=== PATIENT | male | born 1955 | race Asian ===

== ENCOUNTER 2017-07-12 11:25 | Emergency (ER) | payer BC ==
[~2017-07-12] VITALS: Ht 162.6 cm; Wt 59.9 kg
[2017-07-12] MEDS ORDERED: niCARdipine HCl 200 ML IV SCH (12:15)
--- NOTE | 2017-07-12 12:18 | Diagnostic Imaging Report ---
Indications: Right-sided weakness Technique: Spiral acquisitions obtained through the brain. Angled axial and coronal 5 x 5 mm slices were reconstructed. Total dose length product 1376 mGycm. CTDI vol(s) 70 mGy. Dose reduction achieved using automated exposure control Comparison: None Findings: There is a small focus of parenchymal hemorrhage in the left parietal subcortical deep white matter, just above the basal ganglia. This measures 15 mm AP by 10 mm transverse by approximately 12 mm craniocaudad. There is minimal surrounding edema. This does not result in any significant mass effect. No other evidence of acute hemorrhage. There is mild prominence to the ventricles and extra axial CSF spaces, the latter particularly in the bifrontal regions. There is mild periventricular deep night matter chronic ischemic change. No evidence of significant scalp soft tissue abnormality. The visualized orbits and sinuses are unremarkable. The calvarium is intact. The mastoids are clear Impression: Positive for 15 x 10 x 12 mm left parietal/high basal ganglia intraparenchymal hemorrhage. Minimal surrounding edema. No significant mass effect Chronic and age-related changes, as described Critical value findings discussed by phone with Dr. Lioa in the emergency room at the time of interpretation The CT scanner at [facility] is accredited by the [employer] and the scans are performed using protocols designed to limit radiation exposure to as low as reasonably achievable to attain images of sufficient resolution adequate for diagnostic evaluation.
--- NOTE | 2017-07-12 12:31 | Emergency Room Report ---
History of Present Illness General Chief Complaint: Generalized Weakness Source: Patient Present Illness HPI [id number] walk-in with waking up at 6am (6 hours prior) with right arm and leg weakness and difficulty ambulation Not on ASA, AC Used to take HTN meds but stopped a "while ago." Denies fever/chills, slurred speech, neck pain/stiffness, chest pain, SOB No previous CVA Allergies: Coded Allergies: No Known Allergies (Unverified , 07/12/17) Patient History Past Medical History: HTN Past Surgical History: none Pertinent Family History: none Social History: Denies: smoking, alcohol use, drug use Immunizations: UTD Reviewed Nursing Documentation: PMH: Agreed, PSxH: Agreed Nursing Documentation-PMH Past Medical History: No History, Except For Hx Hypertension: Yes Review of Systems All Other Systems: negative except mentioned in HPI Physical Exam Vital Signs Date Time Temp Pulse Resp B/P (MAP) Pulse Ox O2 Delivery O2 Flow Rate FiO2 07/12/17 11:30 98.1 80 18 228/130 99 Room Air Sp02 EP Interpretation: reviewed, normal General Appearance: normal inspection, well appearing, no apparent distress, alert, GCS 15, non-toxic Head: normocephalic, atraumatic Eyes: bilateral eye PERRL, bilateral eye EOMI ENT: normal ENT inspection, hearing grossly normal, normal voice Neck: normal inspection, full range of motion, supple, no bony tend Respiratory: normal inspection, lungs clear, normal breath sounds, no respiratory distress, no retraction, no wheezing Cardiovascular #1: regular rate, rhythm, no edema Gastrointestinal: normal inspection, normal bowel sounds, non tender, soft, no guarding, no hernia Genitourinary: no CVA tenderness Musculoskeletal: normal inspection, back normal, normal range of motion, Vicente' s Sign negative Neurologic: normal inspection, alert, oriented x3, responsive, 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 NIHSS Score 2 Psychiatric: normal inspection, judgement/insight normal, mood/affect normal Skin: normal inspection, normal color, no rash Procedures Critical Care Time Critical Care Time cc time 40 minutes Includes review of CT head with Radiologist, d/w patient/family on PMHx, history of HTN, dosing bedside of Nicardipine, d/w neuro documentation supervisor Dr Briones at [facility], review of labs Medical Decision Making Diagnostic Impression: Primary Impression: Episode of generalized weakness Additional Impressions: Hemorrhagic cerebrovascular accident (CVA) HTN (hypertension) Qualified Codes: I10 - Essential (primary) hypertension ER Course VS with very elevated BP Afebrile NIHSS 2 CT head with 15 x 10 x 12 millimeter, left parietal, high basal ganglia intraparenchymal hemorrhage with mild surrounding edema. No mass effect Airway patent Elevated blood pressure systolic greater than 200 Nicardipine started in ED at 10mg until SBP <160 goal ECG shows LVH Endorsed Dr Briones Transfer neuro ICU at [facility] at 1227pm rescue transfer initiated EKG Diagnostic Results Rate: normal Rhythm: NSR ST Segments: no acute changes ASA given to the pt in ED: No Rhythm Strip Diag. Results EP Interpretation: yes Rate: 86 Rhythm: NSR, no PVC's, no ectopy Last Vital Signs Date Time Temp Pulse Resp B/P (MAP) Pulse Ox O2 Delivery O2 Flow Rate FiO2 07/12/17 11:30 98.1 80 18 228/130 99 Room Air Status: improved Disposition: ADMITTED INPATIENT Condition: Critical COREY GUPTA M.D. Jul 12, 2017 12:31
[2017-07-12 12:36] VITALS: BP 168/103
[2017-07-12 12:50] VITALS: BP 150/89
[2017-07-12 12:55] LABS: LYMPHOCYTES % (AUTO) 24.1 % (20.0-45.0); MEAN CORPUSCULAR HEMOGLOBIN 31.3 PG (27.0-31.0); MEAN CORPUSCULAR HGB CONC 33.9 G/DL (32.0-36.0); MEAN CORPUSCULAR VOLUME 92 FL (80-99); MEAN PLATELET VOLUME 7.4 FL (6.5-10.1); MONOCYTES % (AUTO) 7.4 % (1.0-10.0); NEUTROPHILS % (AUTO) 60.6 % (45.0-75.0); PLATELET COUNT 230 K/UL (150-450); RED BLOOD COUNT 4.69 M/UL (4.70-6.10); RED CELL DISTRIBUTION WIDTH 12.9 % (11.6-14.8)
[2017-07-12 13:00] VITALS: BP 167/95
[2017-07-12 13:00] LABS: INR 0.9 (0.9-1.1); PROTHROMBIN TIME 9.8 SEC (9.30-11.50)
[2017-07-12 13:12] LABS: ALANINE AMINOTRANSFERASE 22 U/L (12-78); ALBUMIN/GLOBULIN RATIO 0.9 (1.0-2.7); ANION GAP 8 mmol/L (5-15); ASPARTATE AMINO TRANSFERASE 16 U/L (15-37); CALCIUM 9.1 MG/DL (8.5-10.1); CARBON DIOXIDE 32 MMOL/L (21-32); CHLORIDE 105 MMOL/L (98-107); CHOLESTEROL 180 MG/DL (< 200); CHOLESTEROL/HDL RATIO 4.9 (3.3-4.4); CREATININE 1.3 MG/DL (0.55-1.30); GLOMERULAR FILTRATION RATE 55.9 mL/min (>60); SODIUM 144 MMOL/L (136-145); TOTAL PROTEIN 7.5 G/DL (6.4-8.2)
[2017-07-12 13:13] LABS: POTASSIUM 2.1 MMOL/L (3.5-5.1)
--- NOTE | 2017-07-22 17:59 | Cardiology Report ---
APPROVED REPORT EKG Measurement Heart [id number] Normal sinus rhythm Possible Left atrial enlargement Left ventricular hypertrophy with repolarization abnormality Cannot rule out Inferior infarct, age undetermined Abnormal ECG
== END 2017-07-12 13:00 | disposition short-term general hospital (02) ==
LOC: EMR 12:22
DX: I62.9 Nontraumatic intracranial hemorrhage, unspecified (principal); R53.1 Weakness; I10 Essential (primary) hypertension
CPT/HCPCS: 36415; 70450; 80053; 80061; 85025; 85610; 85730; 93005; 96374; 99291

== ENCOUNTER → 2020-08-06 | Day surgery (SDC) | payer BC ==
[2020-08-06] VITALS (9 sets, daily range): BP systolic 80–141; BP diastolic 50–85
[~2020-08-06] VITALS: Ht 161.3 cm; Wt 54.4 kg
[~2020-08-06] MED LIST: AMLODIPINE BESYL5 MG ORAL; ASPIRIN-LOW81 MG ORAL; ATORVASTATIN CA40 MG ORAL; EDARBI40 MG ORAL; JARDIANCE PO; LR 1000ml 1,000 ML IVLG SCH; LR 1000ml ONE; Lidocaine 1% MPF 10mg/ml 5ml ONE; PLAVIX75 MG ORAL
--- NOTE | 2020-08-06 09:06 | Pre-Procedure Note/Attestation ---
Pre-Procedure Note/Attestation Complete Prior to Procedure Planned Procedure: not applicable Procedure Narrative: colonoscopy Indications for Procedure Pre-Operative Diagnosis: screening Attestation I attest that I discussed the nature of the procedure; its benefits; risks and complications; and alternatives (and the risks and benefits of such alternatives), prior to the procedure, with the patient (or the patient's legal representative personal service). I attest that, if there was a reasonable possibility of needing a blood tra nsfusion, the patient (or the patient's legal representative personal service) was given the [facility] standardized written summary, pursuant to the [place] Blood Safety Act ([place] Health and Safety Code # 1645, as amended). I attest that I re-evaluated the patient just prior to the surgery and that there has been no change in the patient's H&P, except as documented below: Jabari Soto MD Aug 06, 2020 09:06
--- NOTE | 2020-08-06 09:07 | Short Stay Surgery H&P ---
History of Present Illness History of Present Illness Chief Complaint see typed H&P HPI Chandler Whaley is a 65 year old male who was admitted on for Colon Screening Patient History Allergies: Coded Allergies: No Known Allergies (Unverified , 07/12/17) Medication History Scheduled Amlodipine Besylate* (Amlodipine Besylate*), 5 MG ORAL DAILY, (Reported) Aspirin (Aspirin EC), 81 MG ORAL DAILY, (Reported) Atorvastatin Calcium* (Atorvastatin Calcium*), 80 MG ORAL BEDTIME, (Reported) Azilsartan Medoxomil (Edarbi), 40 MG ORAL DAILY, (Reported) Clopidogrel Bisulfate* (Plavix*), 75 MG ORAL DAILY, (Reported) [Jardiance], 25 PO DAILY, (Reported) Physical Exam Vital Signs Last Vital Signs Date Time Temp Pulse Resp B/P (MAP) Pulse Ox O2 Delivery O2 Flow Rate FiO2 08/06/20 08:32 Room Air 08/06/20 08:30 97.2 76 18 134/85 97 Labs Laboratory Tests Test 08/06/20 08:45 POC Whole Blood Glucose 173 MG/DL (74-106) H Plan Attestation Are the patient's medical conditions optimized for surgery? Jabari Soto MD Aug 06, 2020 09:07
--- NOTE | 2020-08-06 09:54 | Immediate Post-Op Evaluation ---
Immediate Post-Op Evalulation Immediate Post-Op Evalulation Procedure: colonoscopy Date of Evaluation: Aug 06, 2020 Time of Evaluation: 09:54 IV Fluids: 1000 Blood Pressure Systolic: 80 Blood Pressure Diastolic: 50 Pulse Rate: 72 Respiratory Rate: 14 O2 Sat by Pulse Oximetry: 99 Temperature (Fahrenheit): 97.4 Nausea: No Vomiting: No Complications none Patient Status: awake, reacts, patent Hydration Status: adequate Drug: none WilmerriErica huynh CRNA Aug 06, 2020 09:54
--- NOTE | 2020-08-06 09:54 | Anethesia Preoperative Eval ---
Anesthesia Pre-op PMH/ROS General Date of Evaluation: Aug 06, 2020 Time of Evaluation: 09:00 Anesthesiologist: jose ASA Score: ASA 3 Mallampati Score Class I : Soft palate, uvula, fauces, pillars visible Class II: Soft palate, uvula, fauces visible Class III: Soft palate, base of uvula visible Class IV: Only hard plate visible Mallampati Classification: Class II Surgeon: Corrina Diagnosis: Colonoscopy Surgical Procedure: tarrillion Anesthesia History: none Family History: no anesthesia problems Allergies: Coded Allergies: No Known Allergies (Unverified , 07/12/17) Medications: see eMAR Patient NPO?: Yes NPO Date: Aug 06, 2020 NPO Time: 00:01 Past Medical History Cardiovascular: Reports: HTN, CAD Pulmonary: Denies: asthma, COPD, BELEN, other Gastrointestinal/Genitourinary: Reports: GERD; Denies: CRI, ESRD, other Neurologic/Psychiatric: Reports: CVA; Denies: dementia, depression/anxiety, TIA, other Endocrine: Reports: DM; Denies: hypothyroidism, steroids, other HEENT: Denies: cataract (L), cataract (R), glaucoma, [place] (L), [place] (R), other Hematology/Immune: Reports: other - on plavix - stopped 5 days; Denies: anemia, DVT, bleeding disorder Musculoskeletal/Integumentary: Denies: OA, RA, DJD, DDD, edema, other Other: other - stroke x2 PSxH Narrative: lap appy Anesthesia Pre-op Phys. Exam Physician Exam Last Vital Signs Date Time Temp Pulse Resp B/P (MAP) Pulse Ox O2 Delivery O2 Flow Rate FiO2 08/06/20 08:32 Room Air 08/06/20 08:30 97.2 76 18 134/85 97 Constitutional: NAD Neurologic: CN 2-12 intact Cardiovascular: RRR Respiratory: CTA Gastrointestinal: S/NT/ND Airway Exam Mallampati Classification 2 Mallampati Score: Class II MO: full ROM: full Dentures: no upper, no lower Anesthesia Pre-op A/P Labs Chemistry Test 08/06/20 08:45 POC Whole Blood Glucose 173 MG/DL (74-106) H Studies Pre-op Studies: EKG - sr Risk Assessment & Plan Assessment: covid neg Plan: mac Status Change Before Surgery: No Pre-Antibiotics Drug: none Erica Campos MATERIAL LOADER Aug 06, 2020 09:54
--- NOTE | 2020-08-06 10:37 | 48 Hour Post Anesthesia Eval ---
Post Anesthesia Evaluation Procedure: colonoscopy Date of Evaluation: Aug 06, 2020 Time of Evaluation: 10:37 Blood Pressure Systolic: 111 0: 70 Pulse Rate: 61 Respiratory Rate: 14 O2 Sat by Pulse Oximetry: 98 Airway: patent Nausea: No Vomiting: No Hydration Status: adequate Cardiopulmonary Status: stable Mental Status/LOC: patient returned to baseline Post-Anesthesia Complications: none Follow-up care needed: N/A Erica Campos CRNA Aug 06, 2020 10:37
--- NOTE | 2020-08-07 09:00 | Procedure Note ---
DATE OF PROCEDURE: 08/06/2020 PROCEDURE: Colonoscopy with biopsy and snare polypectomy. SURGEON: Jabari Soto M.D. ANESTHESIA: Please see separate anesthesiologist notes for details. PRE-ENDOSCOPIC DIAGNOSIS: Screening. POST-ENDOSCOPIC DIAGNOSES: 1. Status post cecectomy with end-to-side ileocolic anastomosis. 2. Three polyps in the distal transverse colon cold snare polypectomy . 3. Diminutive polyp in the descending colon at 40 cm, status post biopsy removal. 4. Diminutive polyp at 25 cm, status post biopsy removal. 5. Rectal polyp, status post biopsy removal. DESCRIPTION OF PROCEDURE: The procedure, its risks, indications, alternatives, and possible complications including, but not limited to, bleeding, infection, perforation, , and anesthesia complications were explained to the patient and informed consent was obtained. The patient was then sedated in the left lateral decubitus position and a diagnostic colonoscope was introduced into the rectum after a normal rectal exam was obtained and advanced through the anastomosis without difficulty. The surgical anastomosis appeared to be in the right lower quadrant instead an end-to-side ileocecal anastomosis could be seen. There was a small bowel loop where the appendix would typically be, and on the other side the small bowel anastomosis was identified. The colonoscope was then gradually withdrawn and mucosa re-examined carefully. Polyps were identified and removed as described above. Retroflexed view of the rectum was unremarkable. The colonoscope was removed. The patient was sent to recovery in good condition. COMPLICATIONS: None. RECOMMENDATIONS: 1. Follow up biopsy results. 2. Outpatient followup. Thank you for asking me to participate in the care of this patient. Jabari Soto M.D. DR: MUNA JOB#: [id number] CC: Tayler Kemp M.D.; Fax#: [phone]
== END | disposition home or self-care (01) ==
LOC: GAS 07:55
DX: Z12.11 Encounter for screening for malignant neoplasm of colon (principal); K63.5 Polyp of colon; K62.1 Rectal polyp; K63.89 Other specified diseases of intestine; Z79.82 Long term (current) use of aspirin; Z79.899 Other long term (current) drug therapy; I11.9 Hypertensive heart disease without heart failure; I25.10 Atherosclerotic heart disease of native coronary artery without angina pectoris; K21.9 Gastro-esophageal reflux disease without esophagitis; E11.9 Type 2 diabetes mellitus without complications; Z79.02 Long term (current) use of antithrombotics/antiplatelets; Z90.89 Acquired absence of other organs; Z86.73 Personal history of transient ischemic attack (TIA), and cerebral infarction without residual deficits
CPT/HCPCS: 45380; 45385; 82962; 94003; J2704; J7120; U0004; 94150